=== PATIENT | female | born 1990 | race Two or more races ===

== ENCOUNTER → 2024-05-08 | Outpatient (CLI) | payer OTHER | END | disposition home or self-care (01) | LOC: PRENATAL 08:16 | PROVIDERS: ATTEND Obstetrics & Gynecology Maternal & Fetal Medicine | DX: O35.9XX0 Maternal care for (suspected) fetal abnormality and damage, unspecified, not applicable or unspecified (principal); O35.3XX0 Maternal care for (suspected) damage to fetus from viral disease in mother, not applicable or unspecified; O44.02 Complete placenta previa NOS or without hemorrhage, second trimester; O30.90 Multiple gestation, unspecified, unspecified trimester; O30.002 Twin pregnancy, unspecified number of placenta and unspecified number of amniotic sacs, second trimester; O09.522 Supervision of elderly multigravida, second trimester; O34.219 Maternal care for unspecified type scar from previous cesarean delivery; Z3A.20 20 weeks gestation of pregnancy ==

== ENCOUNTER 2024-06-07 10:36 | Outpatient (CLI) | payer OTHER | END 2024-06-07 10:37 | disposition home or self-care (01) | LOC: PRENATAL 10:36 | PROVIDERS: ATTEND Obstetrics & Gynecology Maternal & Fetal Medicine | DX: O26.843 Uterine size-date discrepancy, third trimester (principal); O30.002 Twin pregnancy, unspecified number of placenta and unspecified number of amniotic sacs, second trimester; O09.522 Supervision of elderly multigravida, second trimester; O34.219 Maternal care for unspecified type scar from previous cesarean delivery; Z3A.24 24 weeks gestation of pregnancy ==

== ENCOUNTER 2024-07-11 10:13 | Inpatient (IN) | payer OTHER ==
[~2024-07-11] VITALS: Ht 167.6 cm; Wt 1.4 kg
[2024-07-11 09:20] VITALS: BP 110/72
[2024-07-11] MEDS ORDERED: BETAMETHASONE ACETATE,SOD PHOS 30 MG/5 ML ML ONE (10:32)
[2024-07-11] MEDS ORDERED: CEFAZOLIN SODIUM 1,000 MG VIAL ONE (10:33)
[2024-07-11] MEDS ORDERED: CEFUROXIME500 MG PO (10:54)
[2024-07-11] MEDS ORDERED: PRENATAL TABLE1 EAC1 PO (10:54)
[2024-07-11] MEDS ORDERED: RINGERS SOLUTION,LACTATED 1,000 ML IV SCH (11:15)
[2024-07-11] MEDS ORDERED: CEFAZOLIN SODIUM 1,000 MG VIAL IV ONE (11:15)
[2024-07-11] MEDS ORDERED: BETAMETHASONE ACETATE,SOD PHOS 30 MG/5 ML ML IM STA (11:29)
[2024-07-11 11:46] VITALS: BP 96/63; O2SAT 100
[2024-07-11 12:16] LABS: HEMATOCRIT 35.1 % (36.0-45.00); HEMOGLOBIN 12.2 g/dL (12.0-15.00); MEAN CELL VOLUME 86.4 fL (80.00-100.00); MEAN CORPUSCULAR HGB CONC 34.7 g/dl (32.0-36.0); PLATELET COUNT 264 K/uL (150-450); RED BLOOD COUNT 4.07 M/uL (4.00-6.00); RED CELL DISTRIBUTION WIDTH 14.3 % (11.5-14.5)
[2024-07-11 12:18] LABS: URINE APPEARANCE Clear; URINE BILIRRUBIN Negative (NEGATIVE); URINE BLOOD Negative; URINE COLOR Dark Yellow; URINE GLUCOSE Negative (NEGATIVE); URINE KETONE Trace (NEGATIVE); URINE LEUKOCYTE Negative; URINE NITRATE Negative; URINE PROTEIN Negative (NEGATIVE)
[2024-07-11 12:20] LABS: URINE BACTERIA 23.9 uL (0.0-1933); URINE EPITHELIAL CELLS 9.4 uL (0.0-38.8); URINE RBC 2.1 uL (0.0-20.8)
[2024-07-11 12:40] LABS: INR 0.94; PARTIAL THROMBOPLASTIN TIME 30.2 SECONDS (22.0-34.0); PROTHROMBIN TIME 10.3 SECONDS (9.0-11.5)
[2024-07-11 13:06] LABS: ALBUMIN 2.7 gm/dL (3.4-5.0); BILIRUBIN TOTAL 0.36 mg/dL (0.3-1.2); CALCIUM 9.1 mg/dL (8.5-10.1); CREATININE SERUM 0.4 mg/dL (0.55-1.02); GFR 181.64; GLOBULINA 3.5 G/DL (2.4-3.5); POTASSIUM 4.4 mEq/L (3.5-5.1); TOTAL PROTEIN 6.2 gm/dL (6.4-8.2)
[2024-07-11] MEDS ORDERED: MAGNESIUM SULFATE IN WATER 4 GM/100 ML PIGGYBACK IV ONE (13:45)
[2024-07-11 16:54] VITALS: BP 102/65
[2024-07-11] MEDS ORDERED: CEFAZOLIN SODIUM 1,000 MG VIAL IV SCH (18:00)
[2024-07-11 19:25] VITALS: BP 105/70
[2024-07-11 23:53] VITALS: BP 102/64
[2024-07-12 03:52] VITALS: BP 94/61
[2024-07-12 06:11] VITALS: BP 105/69; O2SAT 98
[2024-07-12] MEDS ORDERED: ERYTHROMYCIN BASE 1 GM TUBE OP ONE ×4 (07:18→10:45)
[2024-07-12] MEDS ORDERED: OXYTOCIN 10 UNITS/ML VIAL ONE (07:19)
[2024-07-12] MEDS ORDERED: CEFAZOLIN SODIUM 1,000 MG VIAL IV SCH (10:27)
[2024-07-12] MEDS ORDERED: MORPHINE SULFATE 4 MG/ML VIAL IV ONE ×2 (10:30→11:45)
[2024-07-12] MEDS ORDERED: PROMETHAZINE HCL 50 MG/ML AMPUL IM PRN (10:30)
[2024-07-12] MEDS ORDERED: MEPERIDINE HCL/PF 50 MG/ML VIAL IM PRN (10:30)
[2024-07-12] MEDS ORDERED: OXYTOCIN 10 UNITS/ML VIAL IV ONE (10:45)
[2024-07-12] MEDS ORDERED: BETAMETHASONE ACETATE,SOD PHOS 30 MG/5 ML ML IM NR (11:10)
[2024-07-12 14:33] VITALS: BP 110/69
[2024-07-12 16:47] VITALS: BP 103/69
[2024-07-12 20:00] VITALS: BP 127/82
[2024-07-13] VITALS: BP 126/77
[2024-07-13 02:20] LABS: HEMATOCRIT 30.4 % (36.0-45.00); HEMOGLOBIN 10.7 g/dL (12.0-15.00); MEAN CELL VOLUME 85.3 fL (80.00-100.00); MEAN CORPUSCULAR HEMOGLOBIN 29.9 pg (27.00-32.0); MEAN CORPUSCULAR HGB CONC 35.1 g/dl (32.0-36.0); PLATELET COUNT 208 K/uL (150-450); RED BLOOD COUNT 3.56 M/uL (4.00-6.00); RED CELL DISTRIBUTION WIDTH 14.1 % (11.5-14.5)
[2024-07-13] MEDS ORDERED: OxyCODONE HCL/APAP UD (PERCOCET) PO PRN (06:45)
[2024-07-13] MEDS ORDERED: ACETAMINOPHEN 500 MG GEL..CAP PO PRN (06:45)
[2024-07-13 09:23] VITALS: BP 108/66
[2024-07-13 17:18] VITALS: BP 132/82
[2024-07-14 02:51] VITALS: BP 107/69
[2024-07-14 09:00] VITALS: BP 118/80
[2024-07-14 16:00] VITALS: BP 115/75
[2024-07-15 02:41] VITALS: BP 124/79
[2024-07-15 10:10] VITALS: BP 115/75
== END 2024-07-15 18:14 | disposition home or self-care (01) | DRG 786 ==
LOC: LDR 10:13 → OB/GYN 10:13 → O/R 07-12 08:38 → OB/GYN 07-12 10:35
PROVIDERS: ADMIT Specialist; ATTEND Specialist
PROC: 4A1HXCZ Monitoring of Products of Conception, Cardiac Rate, External Approach (ICD-10-PCS; 2024-07-11)
PROC: BY4GZZZ Ultrasonography of Third Trimester, Multiple Gestation (ICD-10-PCS; 2024-07-11)
PROC: BU4CZZZ Ultrasonography of Uterus and Ovaries (ICD-10-PCS; 2024-07-11)
PROC: 10D00Z1 Extraction of Products of Conception, Low, Open Approach (ICD-10-PCS; principal; 2024-07-12 15:00)
DX: O36.5932 Maternal care for other known or suspected poor fetal growth, third trimester, fetus 2 (principal); O32.1XX2 Maternal care for breech presentation, fetus 2; O36.8132 Decreased fetal movements, third trimester, fetus 2; O60.14X2 Preterm labor third trimester with preterm delivery third trimester, fetus 2; O42.013 Preterm premature rupture of membranes, onset of labor within 24 hours of rupture, third trimester; O30.033 Twin pregnancy, monochorionic/diamniotic, third trimester; O34.211 Maternal care for low transverse scar from previous cesarean delivery; O26.843 Uterine size-date discrepancy, third trimester; Z3A.29 29 weeks gestation of pregnancy; Z37.2 Twins, both liveborn; Z20.822 Contact with and (suspected) exposure to COVID-19